=== PATIENT | male | born 1960 | race Caucasian/White ===

== ENCOUNTER 2018-09-24 06:16 | Emergency (ER) | payer BC, OTHER ==
[2018-09-24] MEDS ORDERED: EPINEPHrine 1 MG/ML SDV IM ONE (06:32)
[2018-09-24] MEDS ORDERED: methylPREDNISolone Sodium Succinate 125 MG/2 ML SDV IV ONE (06:32)
[2018-09-24] MEDS ORDERED: Sodium Chloride 0.9% 10 ML Syringe FLUSH PRN ×2 (06:32)
--- NOTE | 2018-09-24 06:36 | EDM.PDOC ---
<OfficerRogerio - Last Filed: 09/24/18 06:33> ED HPI GENERAL MEDICAL PROBLEM - General Chief Complaint: Allergic Reaction Stated Complaint: ALLERGIC REACTION Time Seen by Provider: 09/24/18 06:31 Source of Information: Reports: Patient, Family, RN Notes Reviewed History Limitations: Reports: No Limitations - History of Present Illness INITIAL COMMENTS - FREE TEXT/NARRATIVE: 57-year-old gentleman presents emergency department today with allergic type reaction, he awoke this morning about 4:30 having difficulty breathing had some facial swelling tongue swelling feels like throat swelling is his eyelids have also become very puffy his eyes are starting to swell shut. He is unsure what he was exposed to he has had a reaction similar to this about 15 years ago. He works at [employer] he recently switched to a new position at our [employer] where he may be exposed to different allergens - Related Data Allergies Allergy/AdvReac Type Severity Reaction Status Date / Time No Known Allergies Allergy Verified 09/24/18 06:29 Home Meds: Home Meds Losartan Potassium 25 mg PO DAILY 09/24/18 [History] Past Medical History Cardiovascular History: Reports: Hypertension Social & Family History - Tobacco Use Smoking Status *Q: Never Smoker ED ROS ALLERGIC REACTION - Review of Systems Review Of Systems: See Below Constitutional: Reports: No Symptoms HEENT: Reports: Throat Swelling Respiratory: Reports: Shortness of Breath Cardiovascular: Reports: Dyspnea on Exertion ED EXAM GENERAL NO PERIP PULSE - Physical Exam Exam: See Below Exam Limited By: No Limitations General Appearance: Alert, WD/WN, Mild Distress Eye Exam: Bilateral Eye: Periorbital Changes (Edema bilaterally) Throat/Mouth: Normal Teeth, Normal Gums, No Airway Compromise, Other (Mild tongue edema) Head: Atraumatic, Normocephalic Neck: Normal Inspection, Supple, Non-Tender, Full Range of Motion Respiratory/Chest: No Respiratory Distress, Lungs Clear, Normal Breath Sounds, No Accessory Muscle Use, Chest Non-Tender Cardiovascular: Regular Rate, Rhythm, No Murmur Course - Vital Signs Last Recorded V/S: Last Vital Signs Temp 98.1 F 09/24/18 07:13 Pulse 75 09/24/18 07:13 Resp 16 09/24/18 07:13 BP 159/105 H 09/24/18 07:13 Pulse Ox 95 09/24/18 07:13 - Orders/Labs/Meds Orders: Active Orders 24 hr Category Date Time Status Peripheral IV Care [RC] . DIRECTED Care 09/24/18 06:32 Active Peripheral IV Insertion Adult [OM.PC] Urgent Oth 09/24/18 06:32 Ordered Meds: Medications Discontinued Medications Generic Name Dose Route Start Last Admin Trade Name Freq PRN Reason Stop Dose Admin Albuterol 2.5 mg 09/24/18 06:45 Proventil Neb Soln NEB Q4H JORDON Albuterol 2.5 mg 09/24/18 06:50 09/24/18 07:05 Proventil Neb Soln NEB 09/24/18 06:51 2.5 mg NOW STA Administration Epinephrine HCl 0.3 mg 09/24/18 06:32 09/24/18 06:40 Adrenalin IM 09/24/18 06:33 0.3 mg ONETIME ONE Administration Methylprednisolone Sodium Succinate 125 mg 09/24/18 06:32 09/24/18 06:43 Solu-Medrol IV 09/24/18 06:33 125 mg ONETIME ONE Administration Sodium Chloride 10 ml 09/24/18 06:32 09/24/18 06:46 Saline Flush FLUSH 10 ml ASDIRECTED PRN Administration Keep Vein Open Sodium Chloride 10 ml 09/24/18 06:32 Saline Flush FLUSH ASDIRECTED PRN Keep Vein Open Departure - Departure Disposition: Home, Self-Care 01 Clinical Impression: Acute allergic reaction Qualifiers: Encounter type: initial encounter Qualified Code(s): T78.40XA - Allergy, unspecified, initial encounter - Discharge Information Instructions: Allergies, Adult, [id number] Referrals: PCP,None [Primary Care Provider] - Forms: ED Department Discharge Care Plan Goals: Repeat Benadryl every 4-6 hours and return anytime is symptoms are worsening despite treatment. Avoid exposure or wear a mask in the future if necessary. <Ammon Carlson - Last Filed: 09/24/18 09:11> ED HPI GENERAL MEDICAL PROBLEM Throat Pain Score (Numeric/FACES): 10 Course - Re-Assessments/Exams Free Text/Narrative Re-Assessment/Exam: 09/24/18 07:42 57-year-old male initially evaluated and treated by Dr. Swift for an acute allergic reaction. His symptoms are abating rather quickly, he has a little swelling around his eyes and a fullness in his throat but no respiratory symptoms, no rash and he feels ready to leave. Reexamination reveals no mucosal swelling and clear lungs. He will repeat Benadryl later this morning if necessary and return if worsening. Departure - Departure Time of Disposition: 07:48 Condition: Good
[2018-09-24] MEDS ORDERED: Albuterol 0.083% 2.5 MG/3 ML Neb Soln NEB SCH (06:45)
[2018-09-24] MEDS ORDERED: Albuterol 0.083% 2.5 MG/3 ML Neb Soln NEB STA (06:50)
[2018-09-24 07:14] VITALS: BP 159/105
== END 2018-09-24 07:54 | disposition home or self-care (01) ==
LOC: JP.ED 06:16
DX: T78.40XA Allergy, unspecified, initial encounter (principal); I10 Essential (primary) hypertension
CPT/HCPCS: 94640; 96372; 96374; 99284; J0171; J2930

== ENCOUNTER 2020-11-17 22:03 | Emergency (ER) | payer MEDICAID ==
[2020-11-17] MEDS ORDERED: EPINEPHrine 1 MG/ML SDV IM ONE (22:05)
[2020-11-17] MEDS ORDERED: methylPREDNISolone Sodium Succinate 125 MG/2 ML SDV IM ONE (22:05)
--- NOTE | 2020-11-17 22:10 | EDM.PDOC ---
ED HPI GENERAL MEDICAL PROBLEM - General Stated Complaint: BEE STING-SOB Time Seen by Provider: 11/17/20 22:04 Source of Information: Reports: Patient, RN Notes Reviewed History Limitations: Reports: No Limitations - History of Present Illness INITIAL COMMENTS - FREE TEXT/NARRATIVE: 60-year-old gentleman presents emergency department today following a bee sting, just happened prior to presentation to the emergency department he states his throat does feel kind of tight he is having no difficulty breathing. Does not carry an EpiPen Right Middle Back Pain Score (Numeric/FACES): 8 - Related Data Allergies Allergy/AdvReac Type Severity Reaction Status Date / Time No Known Allergies Allergy Verified 11/17/20 22:15 Home Meds: Home Meds Losartan Potassium 25 mg PO DAILY 09/24/18 [History] Gabapentin [Neurontin] 600 mg PO BEDTIME 11/17/20 [History] atorvaSTATin [Lipitor] 40 mg PO BEDTIME 11/17/20 [History] Past Medical History Cardiovascular History: Reports: Hypertension Social & Family History - Caffeine Use Caffeine Use: Reports: Coffee ED ROS GENERAL - Review of Systems Review Of Systems: See Below HEENT: Reports: Throat Pain, Throat Swelling Respiratory: Reports: No Symptoms ED EXAM, GENERAL - Physical Exam Exam: See Below Exam Limited By: No Limitations General Appearance: Alert, Mild Distress Throat/Mouth: Normal Inspection, Normal Lips, Normal Teeth, Normal Gums, Normal Oropharynx, Normal Voice, No Airway Compromise Respiratory/Chest: No Respiratory Distress, Lungs Clear, Normal Breath Sounds, No Accessory Muscle Use, Chest Non-Tender Cardiovascular: Regular Rate, Rhythm, No Murmur Course - Vital Signs Last Recorded V/S: Last Vital Signs Temp 98 F 11/17/20 22:13 Pulse 72 11/17/20 23:20 Resp 16 11/17/20 23:20 BP 136/80 11/17/20 23:20 Pulse Ox 97 11/17/20 23:20 - Orders/Labs/Meds Meds: Medications Discontinued Medications Generic Name Dose Route Start Last Admin Trade Name Freq PRN Reason Stop Dose Admin Epinephrine HCl 0.4 mg 11/17/20 22:05 11/17/20 22:05 Epinephrine 1 Mg/Ml Sdv IM 11/17/20 22:06 0.4 mg ONETIME ONE Administration Methylprednisolone Sodium Succinate 125 mg 11/17/20 22:05 11/17/20 22:24 Methylprednisolone Sodium Succinate 125 Mg/2 Ml Sdv IM 11/17/20 22:06 125 mg ONETIME ONE Administration Departure - Departure Time of Disposition: 23:57 Disposition: Home, Self-Care 01 Condition: Fair Clinical Impression: Acute allergic reaction Qualifiers: Encounter type: initial encounter Qualified Code(s): T78.40XA - Allergy, unspecified, initial encounter - Discharge Information Instructions: Allergies, Adult, [id number] Additional Instructions: Continue with regular medications, use the EpiPen if needed when stung by a bee, please followup with your primary care provider in 3-5 days if not better, please call return to the emergency department with worsening of symptoms. Sepsis Event Note (ED) - Focused Exam Vital Signs: Vital Signs Temp Pulse Resp BP Pulse Ox 11/17/20 23:20 72 16 136/80 97 11/17/20 22:50 59 L 16 137/76 98 11/17/20 22:21 58 L 176/68 H 11/17/20 22:13 98 F 59 L 15 166/76 H 95 11/17/20 22:07 98 F 59 L 15 166/76 H 95 - Assessment/Plan Plan: Assessment Acuity = acute Site and laterality = allergic reaction Etiology = bee sting Manifestations = none Location of injury = Home Lab values = none Plan Prescription written for epinephrine injectable follow-up primary care, I talked to him about observation and rebound however he felt significantly better after the epinephrine would prefer to go home. This note was dictated using [employer] voice recognition software please call with any questions on syntax or grammar.
[2020-11-17 23:28] VITALS: BP 136/80; PULSE 72
== END 2020-11-18 00:10 | disposition home or self-care (01) ==
LOC: JP.ED 22:03
DX: T63.441A Toxic effect of venom of bees, accidental (unintentional), initial encounter (principal); I10 Essential (primary) hypertension; Z79.899 Other long term (current) drug therapy
CPT/HCPCS: 96372; 99282; J0171; J2930